=== PATIENT | male | born 1955 | race Caucasian/White ===

== ENCOUNTER 2024-09-04 06:10 | Day surgery (SDC) | payer MEDICARE, BC ==
[~2024-09-04] VITALS: Ht 172.7 cm; Wt 130.7 kg
[~2024-09-04 06:10] MED LIST: AMOCLA875 PO; Balanced Salt Epinephrine Irrigation Solution 500 mL IR PRN; DOCU100 PO; FISH1000 PO; FLAX PO; Gentamicin Ophth IR Soln 4 MG/0.4 ML SYR IR SCH; HYDACE5325 PO; Lidocaine HCl/Pf 1% 5 ML VIAL XX SCH; MULVITMIND PO; PHENYLEPHRINE\\TROPICAMIDE\\TETRACAINE OPHTHALMIC DILATING SOLN RIGHTEYE PRN; Povidone-Iodine 450 DROP/30 ML Solution ONE; Povidone-Iodine 450 DROP/30 ML Solution RIGHTEYE SCH; Tetracaine HCl/Pf 0.5% Opth Soln 4 ml ONE; Vancomycin Ophth IR Soln 10 MG/0.2 ML SYR IR SCH
[2024-09-04] MEDS ORDERED: Diazepam 5 MG Tab ONE (06:11)
[2024-09-04] MEDS ORDERED: Diazepam 2 MG Tab ONE (06:11)
[2024-09-04] MEDS ORDERED: Lidocaine HCl/Pf 1% 5 ML VIAL ONE (06:41)
[2024-09-04] MEDS ORDERED: NS 500 ML IV ONE ×3 (06:41→07:48)
[2024-09-04] MEDS ORDERED: ELIQUIS5 M3 PO (06:42)
[2024-09-04] MEDS ORDERED: NEBIVOLOL HCL20 MG PO (06:43)
[2024-09-04] MEDS ORDERED: Midazolam HCl 1MG / ML 2ML Vial ONE (07:26)
[2024-09-04 08:04] VITALS: BP 125/77
== END 2024-09-04 08:25 | disposition home or self-care (01) ==
LOC: ORSCSDS 06:10
PROVIDERS: Ophthalmology
PROC: 08RJ3JZ Replacement of Right Lens with Synthetic Substitute, Percutaneous Approach (ICD-10-PCS; principal; 2024-09-04 07:30)
DX: H25.11 Age-related nuclear cataract, right eye (principal); Z96.1 Presence of intraocular lens; I48.91 Unspecified atrial fibrillation; K21.9 Gastro-esophageal reflux disease without esophagitis; G47.33 Obstructive sleep apnea (adult) (pediatric); Z79.899 Other long term (current) drug therapy
CPT/HCPCS: A9270; J2003; J2250; J7040; V2632